=== PATIENT | female | born 1975 | race Caucasian/White ===

== ENCOUNTER 2020-02-12 18:29 | Emergency (ER) | payer MEDICAID, SELFPAY ==
[2020-02-12 18:40] VITALS: BP 168/102; PULSE 88; RESP 18; TEMP 36.6; O2SAT 97
--- NOTE | 2020-02-12 19:32 | ED.GENADULT ---
HPI - General Adult General Chief complaint: Unspecified Stated complaint: sore throat, headache Time Seen by Provider: 02/12/20 18:44 History of Present Illness HPI narrative: Patient is a 44-year-old female who presents ER with sore throat and headache. Patient reports her last week she has been having some posterior headache where the muscles of her neck insert into her skull. Is also associate with sinus congestion and sore throat. No productive cough or shortness of breath. She has mild anterior neck discomfort as well. Normal range of motion. Pain improves when she takes Excedrin. No known sick contacts. Related Data Allergies Allergy/AdvReac Type Severity Reaction Status Date / Time No Known Allergies Allergy Verified 02/12/20 18:43 Review of Systems Review of Systems: All systems reviewed & are unremarkable except as noted in HPI and below Constitutional: Constitutional: Denies chills, Denies fever(s) and Denies weakness ENT: Reports nasal congestion and Reports sore throat Respiratory: Respiratory: Denies cough, Denies dyspnea and Denies wheezing PMFSH Past Medical History Medical History (Updated 02/12/20 @ 19:38 by Jimenez Chapman MD) Healthy female adult Surgical History Surgical History (Updated 02/12/20 @ 19:37 by Jimenez Chapman MD) No history of previous surgery Social History Social History Gender identity (if verbalized by the patient): Female Exam Narrative: Exam Narrative: GENERAL: Well-appearing, well-nourished, and in no acute distress. HEAD: Normocephalic, atraumatic. ENT: Mucous membranes moist. Mild pharyngeal erythema without tonsillar hypertrophy/exudate. Neck: Full range of motion that is painless. Anterior cervical chain lymphadenopathy on the right side. CHEST: Clear to auscultation. No respiratory distress. HEART: Regular rate and rhythm. Normal peripheral pulses. EXTREMITIES: Normal range of motion. No edema. NEURO: Alert and oriented x3. Course Vital Signs Vital signs: Vital Signs Temperature 97.8 F 02/12/20 18:40 Pulse Rate 88 02/12/20 18:40 Respiratory Rate 18 02/12/20 18:40 Blood Pressure 168/102 H 02/12/20 18:40 Pulse Oximetry 97 02/12/20 18:40 Temperature 97.8 F 02/12/20 18:40 Pulse Rate 88 02/12/20 18:40 Respiratory Rate 18 02/12/20 18:40 Blood Pressure 168/102 H 02/12/20 18:40 Pulse Oximetry 97 02/12/20 18:40 Medical Decision Making Vital Signs Vital Signs: Vital Signs Temperature 97.8 F 02/12/20 18:40 Pulse Rate 88 02/12/20 18:40 Respiratory Rate 18 02/12/20 18:40 Blood Pressure 168/102 H 02/12/20 18:40 Pulse Oximetry 97 02/12/20 18:40 Temperature 97.8 F 02/12/20 18:40 Pulse Rate 88 02/12/20 18:40 Respiratory Rate 18 02/12/20 18:40 Blood Pressure 168/102 H 02/12/20 18:40 Pulse Oximetry 97 02/12/20 18:40 Lab Data Labs: Strep Screen Presumptive Negative *(Reference Range: Negative)* Discharge Plan Discharge Clinical Impression: Upper respiratory infection Patient Disposition: Home, Self-Care Condition: Stable Instructions: Upper Respiratory Infection (ED) Additional Instructions: Return to the ER if you have chest pain or shortness of breath, cannot keep down food or water, you have fever over 100.4 ?F, or you have additional concerns. Prescriptions: New naproxen 500 mg tablet 500 mg PO BID Qty: 20 RF: 0 dextromethorphan-guaifenesin [Mucinex DM] 60-1,200 mg tablet extended release 12 hr 1 tablet PO Q12H Qty: 20 RF: 0 Follow-up/Referrals: PHYSICIAN,SAL[employer] DEVELOP[employer] EXECUTIVE [Primary Care Provider] - 1 Week Stand Alone Forms: Work/School Release IP
[2020-02-12 19:58] VITALS: BP 154/88; PULSE 68; RESP 16; TEMP 36.6; O2SAT 100
== END 2020-02-12 20:00 | disposition home or self-care (01) ==
PROVIDERS: Emergency Provider Emergency Medicine
DX: J06.9 Acute upper respiratory infection, unspecified (principal)
CPT/HCPCS: 87081; 87880; 99283

== ENCOUNTER 2020-08-17 16:58 | Emergency (ER) | payer OTHER, SELFPAY ==
--- NOTE | ~2020-08-17 | CT_ITS ---
EXAMINATION: CT abdomen pelvis w con DATE: 08/17/2020 20:35 INDICATION: Headache and nausea. Diarrhea. TECHNIQUE: Computed tomography (CT) of the abdomen and pelvis was performed with 100 cc Omnipaque 350 intravenous contrast. The dose-length product was 960.15 mGy-cm. . Automated exposure control and it erative reconstruction technique were employed. COMPARISON: No prior studies for comparison. FINDINGS: Lung bases are unremarkable. Heart size normal. No significant pleural or pericardial effus ion. The liver, spleen, pancreas, adrenal glands are unremarkable. Gallbladder is present. There is a 1.4 cm right renal cyst. There are punctate nonobstructing left renal stones. No significant vascular abnormality. No lymphadenopathy. Nonobstructive bowel gas pattern. Normal mikayla endix. Trace free fluid in the pelvis, likely physiologic. Small fat-containing umbilical hernia. No free ai r or free fluid. No acute osseous abnormality. IMPRESSION: 1. No acute abdominal abnormality. 2: Nonobstructing left nephrolithiasis. Reviewed, dictated and finalized at location A.
[2020-08-17 18:25] VITALS: BP 147/100; PULSE 83; RESP 16; TEMP 36.4; O2SAT 100
[2020-08-17 18:40] LABS: Basophils Absolute Auto 0.1 K/mm3 (0.0-0.1); Basophils Percent Auto 1.1 % (0.2-1.2); Eosinophils Absolute Auto 0.1 K/mm3 (0-0.3); Eosinophils Percent Auto 1.5 % (0-4.4); Hematocrit 43.2 % (37.0-47.0); Hemoglobin 13.8 g/dL (12.0-15.0); Immature Granulocyte Absolute 0.05 K/mm3 (0.00-0.031); Immature Granulocyte Percent A 0.6 % (0-0.5); Mean Corpuscular HGB Conc 31.9 g/dl (32-36); Mean Corpuscular Volume 90.8 fl (80-100); Mean Platelet Volume 11.7 fl (7.4-10.4); Monocytes Absolute Auto 0.6 K/mm3 (0.1-0.6); Monocytes Percent Auto 7.6 % (2.6-8.5); Neutrophils Absolute Auto 4.7 K/mm3 (1.3-6.7); Neutrophils Percent Auto 57.2 % (45.5-73.1); Platelet Count Result 242 k/mm3 (150-375); Red Blood Count 4.76 M/mm3 (4.2-5.4); Red Cell Distribution Width 12.1 % (11.5-14.5); White Blood Count 8.1 K/mm3 (4.5-10.0)
[2020-08-17 18:45] LABS: Add Urine Microscopic? NO; Appearance Urine Clear (Clear); Bilirubin Urine Negative (Negative); Blood Urine Negative (Negative); Color Urine Yellow (Yellow); Glucose Urine UA Negative (Negative); Ketones Urine Negative (Negative); Leukocyte Esterase Ur Negative LEU/UL (Negative); Nitrate Urine Negative (Negative); Protein Urine Negative (Negative); Specific Grav Ur 1.016 (1.001-1.035); Urobilinogen Urine Negative mg/dL (<2.0)
[2020-08-17 18:48] LABS: Alanine Aminotransferase 19 U/L (4-35); Albumin Level 4.5 g/dL (3.5-5.1); Alkaline Phosphatase 68 U/L (38-126); Anion Gap 9 mmol/L (8-16); Aspartate Amino Transferase 26 U/L (14-36); Bilirubin,Total 0.2 mg/dL (0.2-1.3); Blood Urea Nitrogen 14 mg/dL (7-17); Calcium 9.4 mg/dL (8.4-10.2); Carbon Dioxide 26 mmol/L (22-30); Chloride 102 mmol/L (98-107); Estimated CRCL calculation 105 ml/min; Estimated Glomerular Filt Rate > 60; Glucose 88 mg/dL (65-105); Lipase 56 U/L (23-300); Potassium 4.5 mmol/L (3.4-5.0); Sodium 137 mmol/L (137-145)
[2020-08-17 20:00] VITALS: BP 160/98; PULSE 78
[2020-08-17 20:01] VITALS: BP 146/106; PULSE 82
[2020-08-17 20:02] VITALS: BP 176/119; PULSE 85
[2020-08-17] MEDS: SODIUM CHLORIDE 0.9% IV 1,000 ML 999 ML IV CONT (20:10)
[2020-08-17] MEDS: KETOROLAC 30 MG/ML VIAL (*BKC) IV PUSH (20:10)
[2020-08-17] MEDS: diphenhydrAMINE HCl INJ 50 MG/ML VIAL IV PUSH (20:11)
[2020-08-17] MEDS: PROCHLORPERAZINE EDISYLATE 10 MG/2 ML VIAL IV PUSH (20:12)
--- NOTE | 2020-08-17 22:15 | ED.GENADULT ---
HPI - General Adult General Chief complaint: Nausea/Vomiting/Diarrhea Stated complaint: low back pain, headache Time Seen by Provider: 08/17/20 19:43 History of Present Illness HPI narrative: The patient is a 45-year-old female presents the emergency department chief complaint of nausea vomiting and diarrhea. The patient reports also she has had a headache patient reports she has history of migraines. Patient states she had pain in her back. The patient states that pain is not improved by anything nor is it worsened by anything. Related Data Allergies Allergy/AdvReac Type Severity Reaction Status Date / Time No Known Allergies Allergy Verified 02/12/20 18:43 Review of Systems Review of Systems: Narrative: A 10 system review of systems was completed on the patient and is negative except for what is stated in the HPI. Nursing and ancillary documentation was reviewed. [facility] Past Medical History Medical History Healthy female adult Surgical History Surgical History No history of previous surgery Social History Social History Gender identity (if verbalized by the patient): Female Comments Past medical history significant for migraines Exam Narrative: Exam Narrative: GENERAL: Well-appearing, well-nourished, and in no acute distress. HEAD: Normocephalic, atraumatic. EYES: PERRLA and EOMI. ENT: Nares clear, no rhinorrhea or epistaxis. Mucous membranes moist. NECK: Supple. CHEST: Clear to auscultation. No respiratory distress. HEART: Regular rate and rhythm. No murmur heard. Normal peripheral pulses. ABDOMEN: Soft, moderate diffuse tenderness, nondistended, normal active bowel sounds. EXTREMITIES: Normal range of motion. No edema. SKIN: Warm, dry, no rash. NEURO: No focal deficits. Alert and oriented x3. PSYCH: Normal mood and affect. Course Vital Signs Vital signs: Vital Signs Temperature 36.4 C L 08/17/20 18:25 Pulse Rate 83 08/17/20 18:25 Respiratory Rate 16 08/17/20 18:25 Blood Pressure 147/100 H 08/17/20 18:25 Pulse Oximetry 100 08/17/20 18:25 Temperature 36.4 C L 08/17/20 18:25 Pulse Rate 85 08/17/20 20:02 Respiratory Rate 16 08/17/20 18:25 Blood Pressure 176/119 H 08/17/20 20:02 Pulse Oximetry 100 08/17/20 18:25 Medical Decision Making Vital Signs Vital Signs: Vital Signs Temperature 36.4 C L 08/17/20 18:25 Pulse Rate 83 08/17/20 18:25 Respiratory Rate 16 08/17/20 18:25 Blood Pressure 147/100 H 08/17/20 18:25 Pulse Oximetry 100 08/17/20 18:25 Temperature 36.4 C L 08/17/20 18:25 Pulse Rate 85 08/17/20 20:02 Respiratory Rate 16 08/17/20 18:25 Blood Pressure 176/119 H 08/17/20 20:02 Pulse Oximetry 100 08/17/20 18:25 Lab Data Result diagrams: 08/17/20 18:31 08/17/20 18:31 Labs: Lab Results 08/17/20 08/17/20 08/17/20 Range/Units 18:31 18:31 18:35 WBC 8.1 (4.5-10.0) K/mm3 RBC 4.76 (4.2-5.4) M/mm3 Hgb 13.8 (12.0-15.0) g/dL Hct 43.2 (37.0-47.0) % MCV 90.8 (80-100) fl MCH 29.0 (26-34) pg MCHC 31.9 L (32-36) g/dl RDW 12.1 (11.5-14.5) % Plt Count 242 (150-375) k/mm3 MPV 11.7 H (7.4-10.4) fl Immature Gran % (Auto) 0.6 H (0-0.5) % Neut % (Auto) 57.2 (45.5-73.1) % Lymph % (Auto) 32.0 (18.3-44.2) % [place] % (Auto) 7.6 (2.6-8.5) % Eos % (Auto) 1.5 (0-4.4) % Baso % (Auto) 1.1 (0.2-1.2) % Lymph # (Auto) 2.60 (0.9-3.2) K/mm3 [place] # (Auto) 0.6 (0.1-0.6) K/mm3 Eos # (Auto) 0.1 (0-0.3) K/mm3 Baso # (Auto) 0.1 (0.0-0.1) K/mm3 Abs Immat Gran (auto) 0.05 H (0.00-0.031) K/mm3 Absolute Neuts (auto) 4.7 (1.3-6.7) K/mm3 Absolute Nucleated RBC 0.0 (0.0-0.012) K/mm3 Nucleated RBC % 0.0 (0.0-0.2) % Sodium 1
== END 2020-08-17 23:00 | disposition home or self-care (01) ==
PROVIDERS: Emergency Medicine; Emergency Provider Emergency Medicine
DX: K52.9 Noninfective gastroenteritis and colitis, unspecified (principal); R10.84 Generalized abdominal pain
CPT/HCPCS: 36415; 74177; 80053; 81003; 81025; 83690; 85025; 96361; 96374; 96375; 99284; J0780; J1200; J1885; J7030; Q9967

== ENCOUNTER 2020-08-31 13:50 | Emergency (ER) | payer OTHER, SELFPAY ==
--- NOTE | ~2020-08-31 | XR_ITS ---
EXAMINATION: XR lumbar spine min 4V EXAM DATE: 08/31/2020 15:43 INDICATION: Low back pain today after lifting boxes at work. TECHNIQUE: Lumber spine frontal, lateral, bilateral oblique projections. Coned down frontal and lat eral L5-S1 lumbar projections for interpretation. There is no prior study for comparison. FINDINGS: There is no spondylolysis. Mild lower lumbar facet arthropathy. Mild disc disease at L3-4. The vertebral body and disc heights are otherwise well maintained. The vertebral bodies are aligned i n the AP dimension. Sacrum, sacroiliac joints, sacral arcuate lines are intact. No lumbar scoliosis. There are no acute fractures identified. Paraspinal soft tissue is unremarkable. IMPRESSION: 1. Mild lumbar spondylosis. 2. No acute findings. Reviewed, dictated and finalized at location B.
[2020-08-31 14:00] VITALS: BP 172/102; PULSE 96; RESP 18; TEMP 36.8; O2SAT 98
--- NOTE | 2020-08-31 16:39 | ED.GENADULT ---
HPI - General Adult General Chief complaint: Back Pain/Injury Stated complaint: Low Back Pain Time Seen by Provider: 08/31/20 14:50 Source: patient and RN notes reviewed Mode of arrival: ambulatory Limitations: no limitations History of Present Illness HPI narrative: Patient is a 45-year-old female who presents to emergency department for evaluation of low back pain was at work the other day when she lifted and felt a pop in the low back and has since had pain across the lower back that is a moderate aching pain has been taking [id number] medications with minimal improvement denies any illness other injuries or complaints presents in no distress. Patient ambulates with normal gait Related Data Allergies Allergy/AdvReac Type Severity Reaction Status Date / Time No Known Allergies Allergy Verified 08/31/20 15:04 Review of Systems Review of Systems: All systems reviewed & are unremarkable except as noted in HPI and below PMFSH Past Medical History Medical History Healthy female adult Surgical History Surgical History No history of previous surgery Social History Social History (Updated 08/31/20 @ 16:40 by Cheng Hugo PA-C) Smoking status: Never smoker Gender identity (if verbalized by the patient): Female Exam Narrative: Exam Narrative: GENERAL: Well-appearing, well-nourished, and in no acute distress. HEAD: Normocephalic, atraumatic. EYES: PERRLA and EOMI. ENT: Nares clear, no rhinorrhea or epistaxis. Mucous membranes moist. CHEST: Clear to auscultation. No respiratory distress. No wheezes rales or rhonchi HEART: Regular rate and rhythm. No murmur heard. EXTREMITIES: Normal range of motion. No edema. Midline lumbar tenderness no deformities SKIN: Warm, dry, no rash. NEURO: No focal deficits. Alert and oriented x3. Cranial nerves II through XII grossly intact. Normal speech and gait PSYCH: Normal mood and affect. Course Course Emergency Course: Patient presented with low back pain negative radiographs will be discharged home with outpatient follow-up managed medically felt appropriate for outpatient reevaluation Vital Signs Vital signs: Vital Signs Temperature 98.2 F 08/31/20 14:00 Pulse Rate 96 08/31/20 14:00 Respiratory Rate 18 08/31/20 14:00 Blood Pressure 172/102 H 08/31/20 14:00 Pulse Oximetry 98 08/31/20 14:00 Temperature 98.2 F 08/31/20 14:00 Pulse Rate 96 08/31/20 14:00 Respiratory Rate 18 08/31/20 14:00 Blood Pressure 172/102 H 08/31/20 14:00 Pulse Oximetry 98 08/31/20 14:00 Medical Decision Making MDM Narrative Medical decision making narrative: Patients pain is positional in nature and localized to back without signs of cord compression or cauda equina based on neurological exam, skeletal exam and history. No fever or other significant factors to suggest osteomyelitis or spinal epidural abscess. No symptoms or signs to suggest pain is referred from abdominal or / cardiopulmonary sources. No pulsatile masses noted on exam. Patient ambulates with steady gait and is stable for outpatient management given case findings. Vital Signs Vital Signs: Vital Signs Temperature 98.2 F 08/31/20 14:00 Pulse Rate 96 08/31/20 14:00 Respiratory Rate 18 08/31/20 14:00 Blood Pressure 172/102 H 08/31/20 14:00 Pulse Oximetry 98 08/31/20 14:00 Temperature 98.2 F 08/31/20 14:00 Pulse Rate 96 08/31/20 14:00 Respiratory Rate 18 08/31/20 14:00 Blood Pressure 172/102 H 08/31/20 14:00 Pulse Oximetry 98 08/31/20 14:00 Discharge Plan Discharge Clinical Impression: Strain of lumbar region Patient Disposition: Home, Self-Care Condition: Stable Instructions: Antibiotic Form, Acute Low Back Pain (ED) Additional Instructions: Medications as needed and prescribed. Limit lifting and bending. You may
== END 2020-08-31 16:40 | disposition home or self-care (01) ==
PROVIDERS: Emergency Provider Emergency Medicine
DX: S39.012A Strain of muscle, fascia and tendon of lower back, initial encounter (principal); X50.0XXA Overexertion from strenuous movement or load, initial encounter
CPT/HCPCS: 72110; 99283

== ENCOUNTER 2020-10-17 16:19 | Emergency (ER) | payer OTHER, SELFPAY ==
[2020-10-17 16:21] VITALS: BP 148/95; PULSE 86; RESP 16; TEMP 37.3; O2SAT 99
[2020-10-17 17:27] VITALS: BP 138/86; PULSE 84; RESP 16; O2SAT 100
[2020-10-17] MEDS: KETOROLAC (*BKC) 60 MG/2 ML VIAL IM (18:40)
--- NOTE | 2020-10-17 18:52 | ED.GENADULT ---
HPI - General Adult General Chief complaint: Back Pain/Injury Stated complaint: lbp Time Seen by Provider: 10/17/20 16:44 Source: patient, RN notes reviewed and old records reviewed Mode of arrival: ambulatory Limitations: no limitations History of Present Illness HPI narrative: Patient is a 45-year-old female who presents to emergency department with low back pain has been present since August he has had imaging which was unremarkable has also been followed up by primary care and is currently in physical therapy patient notes aching pain to the lumbar region rating up into the back. Patient is currently not taking anything for pain prescribed by primary care did take Tylenol today. Patient denies any radicular symptoms or paresthesias or any new injury or trauma. Related Data Home Medications Medication Instructions Recorded Confirmed dicyclomine 20 mg tablet 20 mg PO QID 09/10/20 meloxicam 15 mg tablet 15 mg PO DAILY 09/10/20 ondansetron HCl 4 mg tablet 4 mg PO Q8H PRN 09/10/20 Allergies Allergy/AdvReac Type Severity Reaction Status Date / Time No Known Allergies Allergy Verified 08/31/20 15:04 Review of Systems Review of Systems: All systems reviewed & are unremarkable except as noted in HPI and below PMFSH Past Medical History Medical History Allergies GERD (gastroesophageal reflux disease) Headache Healthy female adult Surgical History Surgical History H/O tubal ligation 1999 No history of previous surgery Family History Family History (Updated 09/12/20 @ 07:24 by Yuliet Lagos [facility]) Father Alcoholism Hypertension Depression Mother Depression Hypertension Daughter Depression Hypertension Grandparent Hypertension Heart disease Depression Social History Social History Smoking status: Never smoker Alcohol intake: current Gender identity (if verbalized by the patient): Female Exam Narrative: Exam Narrative: GENERAL: Well-appearing, well-nourished, and in no acute distress. HEAD: Normocephalic, atraumatic. EYES: PERRLA and EOMI. ENT: Nares clear, no rhinorrhea or epistaxis. Mucous membranes moist. CHEST: Clear to auscultation. No respiratory distress. No wheezes rales or rhonchi HEART: Regular rate and rhythm. No murmur heard. Normal peripheral pulses. ABDOMEN: Soft, nontender, nondistended EXTREMITIES: Normal range of motion. No edema. Midline and paraspinal lumbar tenderness no deformities or abnormality noted on exam other than tenderness SKIN: Warm, dry, no rash. NEURO: No focal deficits. Alert and oriented x3. Cranial nerves II through XII grossly intact. Normal speech and gait. Motor and sensory intact and symmetrical in the extremities PSYCH: Normal mood and affect. Course Course Emergency Course: Patient evaluated the emergency department for continued low back pain patient will be discharged with follow-up with primary care and continued physical therapy provided with reasons to return will be started back on medication for her symptoms Vital Signs Vital signs: Vital Signs Temperature 99.2 F 10/17/20 16:21 Pulse Rate 86 10/17/20 16:21 Respiratory Rate 16 10/17/20 16:21 Blood Pressure 148/95 H 10/17/20 16:21 Pulse Oximetry 99 10/17/20 16:21 Temperature 99.2 F 10/17/20 16:21 Pulse Rate 84 10/17/20 17:27 Respiratory Rate 16 10/17/20 17:27 Blood Pressure 138/86 10/17/20 17:27 Pulse Oximetry 100 10/17/20 17:27 Medical Decision Making MDM Narrative Medical decision making narrative: Patients pain is positional in nature and localized to back without signs of cord compression or cauda equina based on neurological exam, skeletal exam and history. No fever or other significant factors to suggest osteomyelitis or spinal epidural abscess. No symptoms o
[2020-10-17 19:14] VITALS: BP 136/87; PULSE 87; RESP 16; O2SAT 100
== END 2020-10-17 19:15 | disposition home or self-care (01) ==
PROVIDERS: Emergency Provider Family Medicine; PCP Internal Medicine
DX: M54.5 Low back pain (principal); I10 Essential (primary) hypertension
CPT/HCPCS: 96372; 99283; J1885

== ENCOUNTER 2020-11-01 08:30 | Outpatient (RCR) | payer OTHER, SELFPAY ==
--- NOTE | 2020-10-04 10:11 | PTOPEVAL ---
INITIAL PHYSICAL THERAPY EVALUATION and PLAN OF CARE Thank you for referring Kellie Kemp to [facility].? Kellie is scheduled to be seen for physical therapy? 2x/week for 4 weeks. Please review, sign, date and return this plan of care REE. I agree with and certify that the following plan of care is medically necessary. Referring Physician Date Admitting Provider: Attending Provider: Salud Carvajal NP Referring Provider: *PT Outpatient Evaluation Start: 10/04/20 09:14 Freq: Status: Active Protocol: Document 10/04/20 09:10 NORY (Rec: 10/04/20 10:11 NORY [id number]) Therapy Assessment Status Assessment Status Assessment Status Evaluation Outpatient Past Medical History Past Medical History Source of Past Medical History Recalled from Previous Visit, Confirmed with Patient/Family Neurological History Hx Neurological Disorders No Significant History Cardiovascular History Hx Hypertension Yes Respiratory History Hx Respiratory Disorders No Significant History Gastrointestinal History Hx Gastrointestinal Disorders No Significant History Genitourinary History Hx Genitourinary Disorders No Significant History Musculoskeletal History Hx Back Injury Yes: 08/30/2020 Hematological History Hx Hematological Disorders No Significant History Endocrine History Hx Endocrine Disorders No Significant History HEENT History Hx HEENT Disorders No Significant History Integumentary History Hx Skin Disorders No Significant History Reproductive History Hx Tubal Ligation Yes: 1999 Psychosocial History Hx Depression Yes Pain History History of Any Previous or Ongoing No Significant History Instance of Pain Anesthesia History Hx Anesthesia Reactions No Significant History Evaluation Information Problem Diagnosis low back pain Onset 08/30/2020 Subjective Information Works at [employer]. 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 Did sit down - didn't feel as bad, but when she stood up to do more work - some discomfort felt. Then went to lunch- was sitting - less discomfort. However, upon return to work in standing position - increase in back pain - filed report. Initially pain was central - then began to spread
--- NOTE | 2020-10-12 16:01 | PCPTNOTE ---
Patient did not show up for scheduled appointment this date. Called & left a message.
--- NOTE | 2020-10-16 13:35 | PCPTNOTE ---
Patient called & cancelled scheduled appointment this date, and rescheduled for tomorrow.]
--- NOTE | 2020-10-23 10:09 | PCPTNOTE ---
Patient did not show up for scheduled appointment this date. Called patient and she thought her appointment was this afternoon.
--- NOTE | 2020-10-30 09:19 | PCPTNOTE ---
Patient called & cancelled scheduled appointment this date due to family emergency. Pt's father was going in for emergency surgery.
--- NOTE | 2020-11-01 10:54 | PTOPEVAL ---
PHYSICAL THERAPY RE-EVALUATION and UPDATED PLAN OF CARE Thank you for referring Kellie Kemp to [facility].? Kellie wants to follow up with Salud Carvajal NP before setting up any further PT appointments. Will await outcome of medical visit and if workman's comp approves further visits before setting up any further appointments. I agree with the above. Referring Physician Date Admitting Provider: Attending Provider: Salud Carvajal NP Referring Provider: Therapy Assessment Status Assessment Status Assessment Status Re-evaluation Evaluation Information Problem Diagnosis low back pain Subjective Information Kellie reports rolling over Query Text:As Reported By Patient/ in bed felt a popping Family sensation in R side of lower back - increased in discomfort since then. Also with sitting in hospital chair for father's surgery - some increase in back discomfort. Current discomfort is now across lower back. Normally sleeps okay. Doing okay with HEP. Pain Assessment Timing of Pain Assessment Timing of Pain Assessment Assessment Pain Scale Pain Scale Used Numeric (1 - 10) Self Report Pain Assessment Lower Back Reported Pain Level 2 Pain Description Aching,Dull Lowest Pain Intensity 2 Greatest Pain Intensity 10 Cervical and Lumbar ROM Lumbar ROM Lumbar Flexion (0-90) 40 Query Text:Active in Degrees Lumbar Extension (0-40) 20 Query Text:Active in Degrees Lumbar Lateral Flexion Right (0-40) 20 Query Text:Active in Degrees Lumbar Lateral Flexion Left (0-40) 20 Query Text:Active in Degrees Lumbar Comments forward flexion - dull pain extension - dull pain - felt like being hit in 1 spot less discomfort with seated flexion Palpation Assessment Palpation Palpation pelvis level in standing, pelvis level in sitting P-A glides - mild tenderness L sacral base, greater at R sacral base - increase in discomfort with P-A glide to L5 - reduced motion, less discomfort at L4 - increase with motion Special Test-Spine Sacral Special Test Sacral Special Tests symmetrical standing flexion test, symmetrical
--- NOTE | 2020-11-28 09:30 | PCPTNOTE ---
PHYSICAL THERAPY DISCHARGE NOTE Admitting Provider: Attending Provider: Salud Carvajal NP Patient:Kellie Kemp Date of :1975 Kellie has not returned for any further treatments since 11/01/2020, therefore she will be discharged at this time. Her status is as of 11/01/20 re-evaluation note. The goals have been partially met. Thank you for referring Kellie to [facility]. Please review, sign, date and return this discharge summary REE. I have been updated about Kellie's current status and I agree with discharge from the above service at this time. Referring Physician Date
== END 2020-12-05 15:33 | disposition home or self-care (01) ==
LOC: ANHPT 08:30
PROVIDERS: PCP Internal Medicine; Visit Provider Nurse Practitioner
DX: M54.5 Low back pain (principal)
CPT/HCPCS: 97014; 97110; 97140; 97161; G0283

== ENCOUNTER 2020-11-26 12:57 | Outpatient (CLI) | payer OTHER, SELFPAY ==
--- NOTE | ~2020-11-26 | MR_ITS ---
EXAMINATION: MR lumbar spine wo con DATE: 11/26/2020 14:44 INDICATION: Low back pain. TECHNIQUE: Magnetic resonance imaging (MRI) of the lumbar spine was performed without intravenous con trast. Sequences included sagittal T2-weighted FSE, sagittal T2-weighted FS FSE, sagittal T1-weighted FSE, and axial T2-weighted FSE. COMPARISON: Lumbar spine radiographs 08/31/2020 FINDINGS: Bone alignment is normal. Vertebral body heights are normal. There is mildly decreased disc height at L3-L4. The distal spinal cord signal intensity is normal. The conus medullaris is at L2. T he following disc levels are specifically discussed: L1-L2: The disc does not extend beyond the endplate margin. There is no facet joint osteoarthritis. T here is no neural foraminal stenosis. There is no central canal stenosis. L2-L3: The disc does not extend beyond the endplate margin. There is mild bilateral facet joint osteo arthritis. There is no neural foraminal stenosis. There is no central canal stenosis. L3-L4: The disc is bulging. There is moderate right and mild left facet joint osteoarthritis. There i s mild bilateral neural foraminal stenosis. There is mild central canal stenosis. L4-L5: The disc does not extend beyond the endplate margin. There is mild bilateral facet joint osteo arthritis. There is no neural foraminal stenosis. There is no central canal stenosis. L5-S1: The disc does not extend beyond the endplate margin. There is mild right facet joint osteoarth ritis. There is no neural foraminal stenosis. There is no central canal stenosis. IMPRESSION: 1. Mild lumbar spondylosis. Reviewed, dictated and finalized at location A. IMPRESSION: 1. Mild lumbar spondylosis.
== END 2020-11-26 12:58 | disposition home or self-care (01) ==
PROVIDERS: PCP Internal Medicine; Visit Provider Clinical Nurse Specialist
DX: M47.896 Other spondylosis, lumbar region (principal)
CPT/HCPCS: 72148

== ENCOUNTER 2021-01-27 13:14 | Emergency (ER) | payer OTHER, SELFPAY ==
[2021-01-27] VITALS (9 sets, daily range): BP systolic 140–160; BP diastolic 70–97; PULSE 65–74; RESP 14–21; TEMP 36.9; O2SAT 100
--- NOTE | ~2021-01-27 | XR_ITS ---
EXAMINATION: XR chest 2V 01/27/2021 13:35 INDICATION: Left-sided chest pain with shortness of breath PROCEDURE: 2 view chest COMPARISON: No prior studies for comparison. FINDINGS: The lungs are clear. The cardiomediastinal silhouette is within normal limits. There are no pleural effusions. There is no pneumothorax suspected. IMPRESSION: 1: NO ACUTE CARDIOPULMONARY DISEASE. Reviewed, dictated and finalized at location A.
--- NOTE | 2021-01-27 13:16 | ECG_ITS ---
Measurements Intervals [place] Rate: 70 P: 33 SD: 157 QRS: -15 QRSD: 89 T: -9 QT: 404 QTc: 436 Interpretive Statements SINUS RHYTHM NONSPECIFIC ST & T-WAVE ABNORMALITY- ANT/INF LEADS BASELINE ARTIFACT- I, II, III, AVR, AVL, AVF, V2-V6 BORDERLINE ECG Electronically Signed On 01-27-2021 16:37:32 CDT by Derek Gillespie D.O.
[2021-01-27 13:37] LABS: Basophils Absolute Auto 0.1 K/mm3 (0.0-0.1); Eosinophils Absolute Auto 0.1 K/mm3 (0-0.3); Eosinophils Percent Auto 1.5 % (0-4.4); Hematocrit 40.1 % (37.0-47.0); Hemoglobin 13.3 g/dL (12.0-15.0); Immature Granulocyte Absolute 0.05 K/mm3 (0.00-0.031); Immature Granulocyte Percent A 0.7 % (0-0.5); Lymphocytes Absolute Auto 2.05 K/mm3 (0.9-3.2); Lymphocytes Percent Auto 28.5 % (18.3-44.2); Mean Corpuscular HGB Conc 33.2 g/dl (32-36); Mean Corpuscular Hemoglobin 29.7 pg (26-34); Mean Corpuscular Volume 89.5 fl (80-100); Mean Platelet Volume 11.3 fl (7.4-10.4); Monocytes Absolute Auto 0.5 K/mm3 (0.1-0.6); Monocytes Percent Auto 7.4 % (2.6-8.5); Neutrophils Absolute Auto 4.4 K/mm3 (1.3-6.7); Neutrophils Percent Auto 60.9 % (45.5-73.1); Platelet Count Result 278 k/mm3 (150-375); Red Blood Count 4.48 M/mm3 (4.2-5.4); Red Cell Distribution Width 11.8 % (11.5-14.5); White Blood Count 7.2 K/mm3 (4.5-10.0)
[2021-01-27 13:46] LABS: Anion Gap 10 mmol/L (8-16); Blood Urea Nitrogen 13 mg/dL (7-17); Calcium 8.9 mg/dL (8.4-10.2); Carbon Dioxide 21 mmol/L (22-30); Chloride 105 mmol/L (98-107); Estimated CRCL calculation 126 ml/min; Estimated Glomerular Filt Rate > 60; Glucose 93 mg/dL (65-110); Potassium 4.2 mmol/L (3.4-5.0); Sodium 136 mmol/L (137-145)
[2021-01-27 13:49] LABS: INR 0.9
[2021-01-27 13:50] LABS: Partial Thromboplastin Time 26.8 SECONDS (22.3-36.8)
[2021-01-27 13:58] LABS: Troponin I < 0.012 ng/mL (0.000-0.034)
--- NOTE | 2021-01-27 14:35 | ED.GENADULT ---
HPI - General Adult General Chief complaint: Chest Pain Stated complaint: CP Time Seen by Provider: 01/27/21 13:17 Source: patient History of Present Illness HPI narrative: Patient is a 45 y/o female complaining of left sided chest pain starting about 4 days ago. She describes her pain as sharp and dull. She rates her pain as 7/10 initially, but 0 currently. She took Ibuprofen, which seemed to help. She was given Aspirin by EMS. She has SOB and diaphoresis. She has no fever or cough. Related Data Allergies Allergy/AdvReac Type Severity Reaction Status Date / Time No Known Allergies Allergy Verified 01/27/21 13:22 Review of Systems Constitutional: Constitutional: Denies chills, Reports excessive sweating, Denies fever(s), Denies headache(s) and Denies weakness Eyes: Eyes: Denies blurry vision ENT: Denies headache(s) and Denies neck pain Cardiovascular: Cardiovascular: Reports chest pain and Reports dyspnea Respiratory: Respiratory: Denies cough and Reports dyspnea Gastrointestinal: Gastrointestinal: Denies abdominal pain, Denies diarrhea, Denies nausea and Denies vomiting Genitourinary: Genitourinary: Denies hematuria and Denies dysuria Musculoskeletal: Musculoskeletal: Denies back pain and Denies neck pain Neurologic: Denies headache(s) and Denies weakness PMFSH Past Medical History Medical History Allergies GERD (gastroesophageal reflux disease) Headache Healthy female adult Surgical History Surgical History H/O tubal ligation 1999 No history of previous surgery Family History Family History Father Alcoholism Hypertension Depression Mother Depression Hypertension Daughter Depression Hypertension Grandparent Hypertension Heart disease Depression Social History Social History Smoking status: Never smoker Alcohol intake: current Gender identity (if verbalized by the patient): Female Exam Const: General: no acute distress and well developed Orientation/consciousness: oriented to person, oriented to place, oriented to time and patient oriented x3 HENMT: Head: normocephalic Ears: external ears normal General nose exam: Normal external nose present Eyes: General: appearance normal, both eyes and all related structures Conjunctivae: conjunctivae normal Neck: Neck: normal visual inspection and full ROM Chest: Chest palpation & inspection: normal inspection of the chest and no tenderness Resp: Effort & Inspection: normal respiratory effort Auscultation: clear to auscultation bilaterally Cardio: Rate: regular rate Rhythm: regular rhythm GI: GI Palp: No abdominal tenderness and Yes Soft to palpation Skin: General skin exam: normal color and turgor normal Neuro: General: oriented to person, oriented to place, oriented to time and patient oriented x3 Cognition (Neuro): normal cognition Extrem: General: normal to inspection, full ROM and no pedal edema Psych: Appearance: grossly normal Mental Status: mental status grossly normal Affect: normal affect Course Vital Signs Vital signs: Vital Signs Temperature 36.9 C 01/27/21 13:16 Pulse Rate 71 01/27/21 13:16 Respiratory Rate 18 01/27/21 13:16 Pulse Oximetry 100 01/27/21 13:16 Temperature 36.9 C 01/27/21 13:16 Pulse Rate 68 01/27/21 17:50 Respiratory Rate 16 01/27/21 17:50 Blood Pressure 140/85 01/27/21 17:50 Pulse Oximetry 100 01/27/21 17:50 Medical Decision Making Vital Signs Vital Signs: Vital Signs Temperature 36.9 C 01/27/21 13:16 Pulse Rate 71 01/27/21 13:16 Respiratory Rate 18 01/27/21 13:16 Pulse Oximetry 100 01/27/21 13:16 Temperature 36.9 C 01/27/21 13:16 Pulse Rate 68 01/27/21 17:50 Respiratory Rate 16 01/27/21 17:50 Blood Pres
[2021-01-27 14:52] LABS: D Dimer < 0.27 ug/mL (<0.48)
[2021-01-27 17:05] LABS: Troponin I < 0.012 ng/mL (0.000-0.034)
== END 2021-01-27 17:50 | disposition home or self-care (01) ==
PROVIDERS: Emergency Provider Emergency Medicine; PCP Internal Medicine
DX: R07.9 Chest pain, unspecified (principal); K21.9 Gastro-esophageal reflux disease without esophagitis; R94.31 Abnormal electrocardiogram [ECG] [EKG]
CPT/HCPCS: 36415; 71046; 80048; 81025; 84484; 85025; 85380; 85610; 85730; 93005; 99284

== ENCOUNTER → 2021-03-04 02:11 | Outpatient (CLI) | payer OTHER, SELFPAY ==
[2021-03-04 18:59] LABS: SARS-CoV-2 RNA PCR Negative
== END ==
PROVIDERS: PCP Internal Medicine; Visit Provider Internal Medicine Critical Care Medicine
DX: R68.89 Other general symptoms and signs (principal); Z20.822 Contact with and (suspected) exposure to COVID-19
CPT/HCPCS: C9803; U0003; U0005

== ENCOUNTER 2021-03-06 15:28 | Emergency (ER) | payer OTHER, SELFPAY ==
[2021-03-06 15:38] VITALS: BP 152/97; PULSE 86; RESP 20; TEMP 37.1; O2SAT 99
[2021-03-06 15:40] VITALS: BP 152/97; PULSE 86; RESP 20; TEMP 37.1; O2SAT 99
--- NOTE | 2021-03-06 16:19 | ED.SKABFB ---
HPI - Skin/Abscess/Foreign Bdy General Chief complaint: Skin/Abscess/Foreign Body Stated complaint: Infection History of Present Illness HPI narrative: This is a 45-year-old female comes in complaining of abscess to her right inner thigh femoral area patient states that she has had this for over a month was initially treated with antibiotics warm compresses it did become soft now and has been draining every 6 but has not gone away and she still having some pain and now it is fluctuant Related Data Home Medications Medication Instructions Recorded Confirmed meloxicam 15 mg tablet 15 mg PO DAILY 01/30/21 02/12/21 Allergies Allergy/AdvReac Type Severity Reaction Status Date / Time No Known Allergies Allergy Verified 01/27/21 13:22 Review of Systems Review of Systems: Abscess pain All systems reviewed & are unremarkable except as noted in HPI and below PMFSH Past Medical History Medical History Allergies GERD (gastroesophageal reflux disease) Headache Healthy female adult Hypertension Surgical History Surgical History H/O tubal ligation 1999 No history of previous surgery Family History Family History Father Alcoholism Hypertension Depression Mother Depression Hypertension Daughter Depression Hypertension Grandparent Hypertension Heart disease Depression Social History Social History Smoking status: Never smoker Alcohol intake: current Gender identity (if verbalized by the patient): Female Comments At time as signature, I have reviewed and agree with nursing past medical, social, surgical and family history. Please see nursing chart for further information. There is no relevant family history pertinent to the presenting complaint. Exam Narrative: GENERAL:Well-appearing, well-nourished, and in no acute distress. HEAD:Normocephalic EYES: PERRLA ENT: Nares clear, no rhinorrhea or epistaxis. Mucous membranes moist. CHEST: Clear to auscultation. No respiratory distress. HEART: Regular rate and rhythm.. ABDOMEN: Soft, nontender, nondistended, normal active bowel sounds. EXTREMITIES: Normal range of motion. femoral/ groin area with a erythema fluctuant area with drainage of serosanguineous fluid SKIN: Warm, dry, no rash. NEURO: No focal deficits. Alert and oriented x3. Course Vital Signs Vital signs: Vital Signs Temperature 98.8 F 03/06/21 15:38 Pulse Rate 86 03/06/21 15:38 Respiratory Rate 20 03/06/21 15:38 Blood Pressure 152/97 H 03/06/21 15:38 Pulse Oximetry 99 03/06/21 15:38 Temperature 98.8 F 03/06/21 15:40 Pulse Rate 86 03/06/21 15:40 Respiratory Rate 20 03/06/21 15:40 Blood Pressure 172/98 H 03/06/21 16:31 Pulse Oximetry 99 03/06/21 15:40 Procedures Abscess I/D other: Date of Incision: 03/06/21 Time of Incision: 16:00 Side (if applicable): right Sedation/analgesia: none Local Anesthetic: lidocaine 1% Amount of anesthesia used (mL): 1 Technique: incised with #11 blade Amount of fluid expressed (mL): 15 Irrigation: No Packing used?: none I&D Results: Blood Complications: pain MDM - Skin/Abscess/Foreign Bdy Differential Diagnosis Differential diagnosis: Likely abscess of skin or subcutaneous tissue, viral exanthem, dermatophytosis, urticaria, herpes zoster, allergic reaction to drug, cellulitis, eczema, insect bites, impetigo and contact dermatitis Discharge Plan Discharge Clinical Impression: Abscess of skin or subcutaneous tissue, Hypertension Patient Disposition: Home, Self-Care Condition: Stable Instructions: Antibiotic Form, Abscess (ED), Abscess Incision and Drainage (DC) Additional Instructions: Warm compresses t
[2021-03-06 16:31] VITALS: BP 172/98
== END 2021-03-06 16:28 | disposition home or self-care (01) ==
PROVIDERS: Emergency Provider Nurse Practitioner Family
DX: L02.214 Cutaneous abscess of groin (principal); I10 Essential (primary) hypertension; K21.9 Gastro-esophageal reflux disease without esophagitis
CPT/HCPCS: 10060; 87070; 87205; 99213; G0463

== ENCOUNTER 2022-04-09 15:16 | Outpatient (CLI) | payer OTHER, SELFPAY ==
[2022-04-09 19:34] LABS: Hemoglobin A1C 4.7 % (<5.7)
[2022-04-09 19:36] LABS: Alanine Aminotransferase 23 U/L (6-35); Albumin Level 4.2 g/dL (3.5-5.1); Alkaline Phosphatase 69 U/L (38-126); Anion Gap 8 mmol/L (8-16); Aspartate Amino Transferase 33 U/L (14-36); Bilirubin,Total 0.4 mg/dL (0.2-1.3); Blood Urea Nitrogen 16 mg/dL (7-17); CRP < 0.5 mg/dL (<1.0); Calcium 9.3 mg/dL (8.4-10.2); Carbon Dioxide 25 mmol/L (22-30); Chloride 102 mmol/L (98-107); Estimated Glomerular Filt Rate > 60; Glucose 100 mg/dL (65-110); Potassium 3.7 mmol/L (3.4-5.0); Sodium 135 mmol/L (137-145)
[2022-04-09 19:42] LABS: Basophils Absolute Auto 0.1 K/mm3 (0.0-0.1); Basophils Percent Auto 1.1 % (0.2-1.2); Eosinophils Absolute Auto 0.1 K/mm3 (0-0.3); Eosinophils Percent Auto 0.7 % (0-4.4); Hematocrit 40.5 % (37.0-47.0); Hemoglobin 12.9 g/dL (12.0-15.0); Immature Granulocyte Absolute 0.03 K/mm3 (0.00-0.031); Immature Granulocyte Percent A 0.4 % (0-0.5); Lymphocytes Absolute Auto 1.55 K/mm3 (0.9-3.2); Lymphocytes Percent Auto 22.3 % (18.3-44.2); Mean Corpuscular HGB Conc 31.9 g/dl (32-36); Mean Corpuscular Volume 94.2 fl (80-100); Mean Platelet Volume 11.6 fl (7.4-10.4); Monocytes Absolute Auto 0.6 K/mm3 (0.1-0.6); Monocytes Percent Auto 7.9 % (2.6-8.5); Neutrophils Absolute Auto 4.7 K/mm3 (1.3-6.7); Neutrophils Percent Auto 67.6 % (45.5-73.1); Platelet Count Result 309 k/mm3 (150-375); Red Cell Distribution Width 12.7 % (11.5-14.5)
[2022-04-09 19:55] LABS: Rheumatoid Factor < 8.6 IU/ML (<12)
[2022-04-09 19:57] LABS: Add Urine Microscopic? YES; Appearance Urine Clear (Clear); Bilirubin Urine Negative (Negative); Blood Urine 2+ (Negative); Color Urine Light Yellow (Yellow); Glucose Urine UA Negative (Negative); Ketones Urine Negative (Negative); Leukocyte Esterase Ur Negative LEU/UL (Negative); Nitrate Urine Negative (Negative); Protein Urine Negative (Negative); Urobilinogen Urine 0.2 mg/dL (<2.0); pH Urine 6.5 (5.0-9.0)
[2022-04-09 20:06] LABS: Vitamin D 25 Hydroxy 27.5 ng/mL
[2022-04-09 20:15] LABS: Erythrocyte Sedimentation Rate 14 mm/hr (0-20)
[2022-04-13 11:46] LABS: ANA Cascade Screen Negative (Negative)
[2022-04-16 09:41] LABS: Gliadin AB, IgG <1.0 U/mL (<15.0); TTG IGA AB <1.0 U/mL (<15.0)
== END 2022-04-09 15:17 | disposition home or self-care (01) ==
LOC: ANHGOSHLAB 15:17
PROVIDERS: PCP Internal Medicine; Visit Provider Clinical Nurse Specialist
DX: R10.9 Unspecified abdominal pain (principal); R73.9 Hyperglycemia, unspecified; M35.3 Polymyalgia rheumatica; I10 Essential (primary) hypertension; E55.9 Vitamin D deficiency, unspecified
CPT/HCPCS: 36415; 80053; 81001; 82306; 83036; 83516; 84443; 85025; 85652; 86038; 86140; 86255; 86430

== ENCOUNTER 2022-05-02 12:10 | Outpatient (CLI) | payer OTHER, SELFPAY ==
[2022-05-02 12:23] LABS: Add Urine Microscopic? NO; Appearance Urine Clear (Clear); Bilirubin Urine Negative (Negative); Blood Urine Negative (Negative); Color Urine Yellow (Yellow); Glucose Urine UA Negative (Negative); Ketones Urine Negative (Negative); Leukocyte Esterase Ur Negative LEU/UL (Negative); Nitrate Urine Negative (Negative); Protein Urine Negative (Negative); Specific Grav Ur 1.025 (1.001-1.035); Urobilinogen Urine 0.2 mg/dL (<2.0)
[2022-05-02 12:40] LABS: Mucus Urine Rare /lpf; RBC Urine 0-2 /hpf (0-2); Squamous Epithelial Cell Urine Occasional /hpf (Few); WBC Urine 0-3 /hpf
[2022-05-09 21:17] LABS: Calprotectin, Stool 120 mcg/g
== END 2022-05-02 12:11 | disposition home or self-care (01) ==
PROVIDERS: PCP Internal Medicine; Visit Provider Nurse Practitioner
DX: R10.9 Unspecified abdominal pain (principal)
CPT/HCPCS: 81003; 83993

== ENCOUNTER 2022-07-04 09:58 | Outpatient (CLI) | payer OTHER, SELFPAY ==
--- NOTE | ~2022-07-04 | XR_ITS ---
EXAMINATION: XR small bowel follow through DATE: 07/04/2022 14:04 INDICATION: Left lower quadrant abdominal pain. TECHNIQUE: Oral contrast was administered, and a time course of radiographs of the abdomen was obtain ed. Fluoroscopy of the small bowel was performed. Fluoroscopy exposure time was 0.2 minutes. The tota l number of images was 18. COMPARISON: CT abdomen and pelvis 08/17/2020 FINDINGS: There are no dilated loops of bowel. There is no abnormal mass or stricture of the small bowel. Trans it time from the stomach to proximal colon was approximately 3 hours and 15 minutes. There is fold th ickening in the descending and sigmoid colon, which is small in caliber. IMPRESSION: 1. Normal small bowel. 2. Fold thickening in the descending colon and sigmoid colon, which is small in caliber, consistent w ith colitis. Reviewed, dictated and finalized at location A. [employer] IMPRESSION: 1. Normal small bowel. 2. Fold thickening in the descending colon and sigmoid colon, which is small in caliber, consistent with colitis.
== END 2022-07-04 09:59 | disposition home or self-care (01) ==
PROVIDERS: PCP Internal Medicine; Visit Provider Nurse Practitioner Family
DX: R93.3 Abnormal findings on diagnostic imaging of other parts of digestive tract (principal); R10.9 Unspecified abdominal pain; R19.5 Other fecal abnormalities
CPT/HCPCS: 74250

== ENCOUNTER 2023-06-23 12:04 | Emergency (ER) | payer OTHER, SELFPAY ==
[2023-06-23 12:12] VITALS: BP 183/115; PULSE 109; RESP 20; TEMP 36.4; O2SAT 99
[2023-06-23 13:00] LABS: Eosinophils Absolute Auto 0.1 K/mm3 (0-0.3); Eosinophils Percent Auto 1.5 % (0-4.4); Hematocrit 40.6 % (37.0-47.0); Hemoglobin 12.6 g/dL (12.0-15.0); Immature Granulocyte Absolute 0.01 K/mm3 (0.00-0.031); Immature Granulocyte Percent A 0.2 % (0-0.5); Lymphocytes Absolute Auto 1.22 K/mm3 (0.9-3.2); Lymphocytes Percent Auto 30.4 % (18.3-44.2); Mean Corpuscular Hemoglobin 28.3 pg (26-34); Mean Corpuscular Volume 91.2 fl (80-100); Mean Platelet Volume 10.4 fl (7.4-10.4); Monocytes Absolute Auto 0.4 K/mm3 (0.1-0.6); Neutrophils Absolute Auto 2.2 K/mm3 (1.3-6.7); Neutrophils Percent Auto 55.9 % (45.5-73.1); Platelet Count Result 191 k/mm3 (150-375); Red Blood Count 4.45 M/mm3 (4.2-5.4); Red Cell Distribution Width 13.5 % (11.5-14.5)
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
--- NOTE | 2023-06-23 13:01 | PC.NURSE ---
denies suicidal or homicidal ideations. Reports she has had negative thoughts about people before but has no plans of acting on them
[2023-06-23] MEDS: ACETAMINOPHEN 500 MG TABLET 1000 MG PO (13:02)
[2023-06-23] MEDS: hydrOXYzine HCL 25 MG TABLET PO (13:05)
[2023-06-23 13:12] LABS: Alanine Aminotransferase 27 U/L (6-35); Alkaline Phosphatase 75 U/L (38-126); Anion Gap 6 mmol/L (8-16); Aspartate Amino Transferase 37 U/L (14-36); Bilirubin,Total 0.6 mg/dL (0.2-1.3); Blood Urea Nitrogen 5 mg/dL (7-17); Carbon Dioxide 23 mmol/L (22-30); Chloride 106 mmol/L (98-107); Estimated CRCL calculation 102 ml/min; Estimated Glomerular Filt Rate > 60; Glucose 107 mg/dL (65-110); Potassium 3.4 mmol/L (3.4-5.0); Sodium 135 mmol/L (137-145)
[2023-06-23 13:13] LABS: Acetaminophen < 10 ug/mL (10-30); Ethanol < 10 mg/dL (<10); Salicylate < 1.0 mg/dL (2-20)
[2023-06-23 13:52] LABS: Appearance Urine Cloudy (Clear); Bacteria Urine 3+ /hpf; Bilirubin Urine Negative (Negative); Blood Urine Negative (Negative); Color Urine Yellow (Yellow); Glucose Urine UA Negative (Negative); Ketones Urine Trace mg/dL (Negative); Leukocyte Esterase Ur Trace LEU/UL (Negative); Need Manual Microscopic Reviewed; Nitrate Urine Negative (Negative); Non Pathogenic Casts 0-2; Protein Urine Trace mg/dL (Negative); RBC Urine 0-2 /hpf (0-2); Specific Grav Ur 1.012 (1.001-1.035); Squamous Epithelial Cell Urine Moderate /hpf (Few); Urobilinogen Urine 0.2 mg/dL (<2.0)
[2023-06-23 13:55] LABS: Add Urine Microscopic? YES
[2023-06-23 13:56] LABS: Pregnancy On Board Control Positive; Urine Pregnancy Test Negative
[2023-06-23 14:59] LABS: Amphetamine Screen Urine Negative (Negative); Barbiturate Screen Urine Negative (Negative); Benzodiazepines Screen Urine Negative (Negative); Cannabinoid Screen Urine Negative (Negative); Cocaine Screen Urine Negative (Negative); Methadone Screen Urine Negative (Negative); Opiate Screen Urine Negative (Negative); Phencyclidine Screen Urine Negative (Negative)
--- NOTE | 2023-06-23 15:48 | PC.NURSE ---
precautionary dinner tray ordered at 0215
[2023-06-23 15:58] LABS: Influenza A QL RT-PCR Negative (Negative); Influenza B QL RT-PCR Negative (Negative); RSV RNA, RT-PCR Negative (Negative); SARS-CoV-2 RNA PCR Negative (Negative)
== END 2023-06-23 17:32 | disposition home or self-care (01) ==
PROVIDERS: Emergency Provider Preventive Medicine Aerospace Medicine; PCP Internal Medicine
DX: F41.9 Anxiety disorder, unspecified (principal); I10 Essential (primary) hypertension; Z20.822 Contact with and (suspected) exposure to COVID-19
CPT/HCPCS: 36415; 80053; 80307; 81001; 81025; 84443; 85025; 87086; 87637; 99284; A9270

== ENCOUNTER 2023-09-25 14:31 | Emergency (ER) | payer OTHER, SELFPAY ==
--- NOTE | ~2023-09-25 | XR_ITS ---
EXAMINATION: XR chest 2V 09/25/2023 14:58 INDICATION: Shortness of breath PROCEDURE: 2 view chest COMPARISON: 01/27/2021 FINDINGS: The lungs are clear. The cardiomediastinal silhouette is within normal limits. There are no pleural effusions. There is no pneumothorax suspected. IMPRESSION: 1: NO ACUTE CARDIOPULMONARY DISEASE. Reviewed, dictated and finalized at location B.
[2023-09-25 14:32] VITALS: BP 179/78; PULSE 69; RESP 20; TEMP 36.4; O2SAT 100
--- NOTE | 2023-09-25 14:47 | ECG_ITS ---
[facility] [address] Test Date: 2023-09-25 Pat Name: Kellie Kemp Department: Room: Gender: F Roll Hand: [id number] : 1975 Requested By: Ivan Garza Order Number: [id number] Annmarie MD: Derek Gillespie D.O. Measurements Intervals [place] Rate: 68 P: 31 AR: 152 QRS: -11 QRSD: 88 T: -6 QT: 421 QTc: 449 Interpretive Statements SINUS RHYTHM LEFT VENTRICULAR HYPERTROPHY BORDERLINE ST-T WAVE ABNORMALITY- INFERIOR LEADS BORDERLINE ECG No previous ECG available for comparison Electronically Signed On 09-25-2023 16:57:28 CDT by Derek Gillespie D.O.
--- NOTE | 2023-09-25 15:19 | ED.SOB ---
HPI - SOB/Dyspnea General Chief Complaint: Shortness of Breath/Dyspnea Stated Complaint: shortness of breath Time Seen by Provider: 09/25/23 15:09 Source: patient Mode of arrival: ambulatory Limitations: no limitations History of Present Illness HPI Narrative: This is a 48 year old female that presents to the ER for pleuritic chest pain. Ongoing over the last couple of days. Associated with feeling of difficulty breathing. Does report a cough. Denies fever or lower extremity edema. Related Data Allergies Allergy/AdvReac Type Severity Reaction Status Date / Time No Known Allergies Allergy Verified 09/25/23 14:36 Review of Systems Review of Systems: CONSTITUTIONAL: Denies fever CARDIOVASCULAR: Reports chest pain. Denies edema. RESPIRATORY: Reports cough and dyspnea. All systems reviewed & are unremarkable except as noted in HPI and below PMFSH Past Medical History Medical History Abnormal digestive system diagnostic imaging Allergies Anxiety Jones's esophagus without dysplasia Diverticulosis Dysuria GERD (gastroesophageal reflux disease) Headache Healthy female adult Hospital discharge follow-up Hypertension IBS (irritable bowel syndrome) Obesity (BMI 30.0-34.9) Surgical History Surgical History H/O tubal ligation 1999 No history of previous surgery Family History Family History Father Alcoholism Hypertension Depression Mother Depression Hypertension Daughter Depression Hypertension Grandparent Hypertension Heart disease Depression Social History Social History Smoking status: Never smoker Alcohol intake: current Drinks per week: 1 Substance use type: does not use Lack of Transportation: No Lack of Food: Never True Current Housing: I Have Housing Concerned About Future Housing: No Difficulty Paying Gas/Electric Bills: No Difficulty Paying for Meds: No Currently Unemployed: No Education: High School Diploma/GED Difficulty w/ Childcare or Family Care: No Living arrangements: with family Occupation/Education: unemployed Gender identity (if verbalized by the patient): Female Spiritual care concerns: No Exam Narrative: GENERAL: Well-appearing, well-nourished, and in no acute distress. HEAD: Normocephalic, atraumatic. EYES: EOMI. CHEST: Clear to auscultation. No respiratory distress. No wheezes rales or rhonchi. Tender to palpation of the mid anterior chest wall HEART: Regular rate and rhythm. No murmur heard. Normal peripheral pulses. EXTREMITIES: Normal range of motion. No edema. SKIN: Warm, dry, no rash. NEURO: No focal deficits. Alert and oriented x3. PSYCH: Normal mood and affect Course Course Emergency Course: Patient updated on her workup and agrees with plan of care. Reports relief with Toradol Vital Signs Vital signs: Vital Signs Temperature 97.5 F L 09/25/23 14:32 Pulse Rate 69 09/25/23 14:32 Respiratory Rate 20 09/25/23 14:32 Blood Pressure 179/78 H 09/25/23 14:32 Pulse Oximetry 100 09/25/23 14:32 Oxygen Delivery Room Air 09/25/23 14:32 Temperature 97.5 F L 09/25/23 14:32 Pulse Rate 69 09/25/23 14:32 Respiratory Rate 20 09/25/23 14:32 Blood Pressure 179/78 H 09/25/23 14:32 Pulse Oximetry 98 09/25/23 16:07 Oxygen Delivery Room Air 09/25/23 16:07 MDM - SOB/Dyspnea MDM Narrative Medical decision making narrative: Patient presents to the emergency department for pleuritic chest pain ongoing over the last couple of days. She is afebrile and nontoxic appearing. Oxygen saturation is normal on room air. Lungs are clear on exam. CBC without leukocytosis. Metabolic panel without concerning findings. EKG without acute ST changes and her baseline troponin
[2023-09-25] MEDS: KETOROLAC 15 MG/ML VIAL (*BKC) IV PUSH (16:01)
[2023-09-25 16:07] VITALS: O2SAT 98
[2023-09-25 17:08] LABS: Basophils Absolute Auto 0.1 K/mm3 (0.0-0.1); Basophils Percent Auto 1.8 % (0.2-1.2); Eosinophils Absolute Auto 0.1 K/mm3 (0-0.3); Hematocrit 39.4 % (37.0-47.0); Hemoglobin 12.6 g/dL (12.0-15.0); Immature Granulocyte Absolute 0.01 K/mm3 (0.00-0.031); Immature Granulocyte Percent A 0.2 % (0-0.5); Lymphocytes Absolute Auto 1.74 K/mm3 (0.9-3.2); Lymphocytes Percent Auto 35.2 % (18.3-44.2); Mean Corpuscular Hemoglobin 27.5 pg (26-34); Mean Corpuscular Volume 85.8 fl (80-100); Mean Platelet Volume 11.1 fl (7.4-10.4); Monocytes Absolute Auto 0.4 K/mm3 (0.1-0.6); Monocytes Percent Auto 8.9 % (2.6-8.5); Neutrophils Absolute Auto 2.6 K/mm3 (1.3-6.7); Neutrophils Percent Auto 52.9 % (45.5-73.1); Platelet Count Result 322 k/mm3 (150-375); Red Blood Count 4.59 M/mm3 (4.2-5.4); Red Cell Distribution Width 14.8 % (11.5-14.5); White Blood Count 4.9 K/mm3 (4.5-10.0)
[2023-09-25 17:15] LABS: Alanine Aminotransferase 33 U/L (6-35); Albumin Level 4.1 g/dL (3.5-5.1); Alkaline Phosphatase 62 U/L (38-126); Anion Gap 7 mmol/L (4-12); Aspartate Amino Transferase 34 U/L (14-36); Bilirubin,Total 0.6 mg/dL (0.2-1.3); Blood Urea Nitrogen 14 mg/dL (7-17); Calcium 8.8 mg/dL (8.4-10.2); Carbon Dioxide 22 mmol/L (22-30); Chloride 107 mmol/L (98-107); Estimated Glomerular Filt Rate > 60; Glucose 101 mg/dL (65-110); Potassium 3.9 mmol/L (3.4-5.0); Sodium 136 mmol/L (137-145)
[2023-09-25 17:20] LABS: Prothrombin Time 13.7 Seconds (11.1-14.7)
[2023-09-25 17:25] LABS: D Dimer 0.35 ug/mL (<0.48)
[2023-09-25 17:27] LABS: Troponin I < 0.012 ng/mL (0.000-0.034)
[2023-09-25 18:26] VITALS: BP 185/93; PULSE 80; RESP 18; TEMP 36.8; O2SAT 100
== END 2023-09-25 18:30 | disposition home or self-care (01) ==
PROVIDERS: Emergency Medicine; Emergency Provider Physician Assistant; PCP Internal Medicine
DX: R07.9 Chest pain, unspecified (principal); I10 Essential (primary) hypertension; K21.9 Gastro-esophageal reflux disease without esophagitis; F41.9 Anxiety disorder, unspecified; E66.9 Obesity, unspecified; Z68.37 Body mass index [BMI] 37.0-37.9, adult
CPT/HCPCS: 36415; 71046; 80053; 84484; 85025; 85380; 85610; 93005; 96374; 99284; J1885